=== PATIENT | male | born 1935 | race Caucasian/White ===

== ENCOUNTER 2016-12-30 16:51 | Emergency (ER) | payer MEDICARE ==
[~2016-12-30 16:51] MED LIST: ARICEPT10 M2 PO; ASPIRIN325 M3 PO; ASPIRIN81 MG PO; CARBIDOPA-LEVO1 EAC9 PO; CELEXA20 M2 PO; COLACE100 MG PO; COMPAZINE25 MG/SUPP PR; COZAAR25 M1; FENOFIBRATE145 M2 PO; LISINOPRIL5 MG PO; NORCO 5/325 TAB1 TAB PO; NORVASC5 M2; OMEPRAZOLE20 M3 PO; PLAVIX75 MG PO; SIMVASTATIN10 MG PO; SYNTHROID50 MC1 PO; TYLENOL325 M2 PO; TYLENOL325 MG; TYLENOL325 MG PO; VENLAFAXINE HCL PO; VITAMIN B122500 MCG PO; ZANTAC 7575 MG PO; ZANTAC150 MG PO; ZEBETA10 MG PO
[2017-03-01] MEDS ORDERED: NAMENDA10 M1 PO (09:13)
[2017-03-05] MEDS ORDERED: CRESTOR5 M1 PO (10:27)
[2017-03-05] MEDS ORDERED: PLAVIX75 M1 PO (10:27)
[2017-03-05] MEDS ORDERED: ZESTRIL5 M1 PO (10:28)
[2017-03-05] MEDS ORDERED: NITROQUICK SL (10:30)
[2017-03-05] MEDS ORDERED: ASPIRIN81 M1 PO (10:32)
[2017-03-05] MEDS ORDERED: TOPROL XL25 M1 PO (10:35)
[2017-03-05] MEDS ORDERED: MELATIN3 MG PO (10:35)
[2017-03-12] MEDS ORDERED: PROTONIX40 M2 PO (10:22)
[2017-03-12] MEDS ORDERED: RANEXA500 M1 PO (10:26)
== END 2016-12-30 19:19 ==
LOC: EDMED 16:51
DX: S00.01XA Abrasion of scalp, initial encounter (principal); W01.198A Fall on same level from slipping, tripping and stumbling with subsequent striking against other object, initial encounter; Y92.89 Other specified places as the place of occurrence of the external cause